=== PATIENT | female | born 1980 | race African-American/Black ===

== ENCOUNTER 2020-01-13 23:27 | Emergency (ER) | payer OTHER ==
[~2020-01-13] VITALS: Ht 162.6 cm; Wt 57.0 kg
[2020-01-14 00:19] LABS: CLARITY URINE CLEAR (CLEAR); COLOR URINE DARK YELLOW (YELLOW); KETONES URINE NEGATIVE (NEGATIVE); LEUKOCYTE ESTERASE URINE 1+ (NEGATIVE); NITRITE URINE NEGATIVE (NEGATIVE); OCCULT BLOOD URINE 3+ (NEGATIVE); PH URINE 6.5 (4.5-8.0); PROTEIN URINE TRACE (NEGATIVE); SPECIFIC GRAVITY URINE 1.024 (1.005-1.030); UROBILINOGEN URINE 0.2 E.U./dL (0.2-1.0)
[2020-01-14] MEDS: ONDANSETRON HCL 4MG/2ML INJ IV STA (00:37)
[2020-01-14] MEDS: MORPHINE SULFATE 4 MG/ML CPJ (NOT FOR IM USE) IV STA (00:37)
[2020-01-14 00:42] LABS: BASOPHILS % 0.7 % (0.0-2.0); EOSINOPHILS % 0.4 % (0.0-5.0); HEMATOCRIT. 35.4 % (36.0-48.0); HEMOGLOBIN. 11.8 g/dL (12.0-16.0); MEAN CORPUSCULAR HEMOGLOBIN 28.7 pg (28.0-32.0); MEAN CORPUSCULAR VOLUME 86.2 fL (81.0-99.0); MEAN PLATELET VOLUME 8.2 fl (7.4-10.4); MONOCYTES % 8.6 % (2.0-8.0); NEUTROPHILS % 76.3 % (40.0-76.0); PLATELET 383 x1000/uL (130-400); RED CELL DISTRIBUTION WIDTH 13.8 % (11.6-14.6)
[2020-01-14 00:46] LABS: CHLORIDE 109 mEq/L (98-107); PROTHROMBIN TIME 10.5 sec (9.6-11.0)
[2020-01-14] MEDS: MORPHINE SULFATE 4 MG/ML CPJ (NOT FOR IM USE) IV ONE (02:41)
[2020-01-14] MEDS: CEFTRIAXONE 1 G PREMIX 50 ML IV SCH (02:53)
[2020-01-14 03:34] VITALS: BP 124/82
[2020-01-14] MEDS ORDERED: IOHEXOL-300 100 ML BOTTLE ONE (03:52)
== END 2020-01-14 05:23 | disposition home or self-care (01) ==
LOC: ER 23:27
DX: D25.9 Leiomyoma of uterus, unspecified (principal); N39.0 Urinary tract infection, site not specified; E11.9 Type 2 diabetes mellitus without complications
CPT/HCPCS: 36415; 74176; 74177; 80053; 81003; 81025; 83605; 83690; 85025; 85610; 87040; 96365; 96366; 96375; 96376; 99285; J0696; J2270; J2405; Q9967